=== PATIENT | male | born 1935 | race American Indian/Alaskan Native ===

== ENCOUNTER 2017-07-25 20:46 | Emergency (ER) | payer MEDICARE ==
[2017-07-25] MEDS ORDERED: Doxycycline 100 MG Cap PO ONE (20:47)
[2017-07-25 22:17] LABS: CHLORIDE,CL 106 mmol/L (101-111); SODIUM,NA 136 mmol/L (135-145)
--- NOTE | 2017-07-25 22:47 | EDM.PDOC ---
ED HPI GENERAL MEDICAL PROBLEM - General Chief Complaint: Lower Extremity Injury/Pain Stated Complaint: [id number] LEG SWOLLEN FOR 4 DAYS Time Seen by Provider: 07/25/17 21:10 Source of Information: Reports: Patient, Family History Limitations: Reports: No Limitations - History of Present Illness INITIAL COMMENTS - FREE TEXT/NARRATIVE: left lower edmondson, red and warm x 4 days, noted blisters on mid ortion today. reports hot packing area past 2 days. Anterior area tender, no pain to posterior calf. No hx clots. No hx skin infections. Unsure if bumped leg or not. No other complaints. No fevers, some chills. - Related Data Allergies Allergy/AdvReac Type Severity Reaction Status Date / Time No Known Allergies Allergy Verified 07/25/17 21:02 Home Meds: Home Meds . [No Known Home Meds] 07/25/17 [History] Past Medical History HEENT History: Reports: Impaired Vision Other HEENT History: wears glasses - Past Surgical History HEENT Surgical History: Reports: None GI Surgical History: Reports: Hernia Repair/Other Musculoskeletal Surgical History: Reports: Knee Replacement Social & Family History - Family History Family Medical History: Noncontributory - Tobacco Use Smoking Status *Q: Unknown Ever Smoked - Caffeine Use Caffeine Use: Reports: Coffee - Recreational Drug Use Recreational Drug Use: No Review of Systems - Review of Systems Review Of Systems: ROS reveals no pertinent complaints other than HPI. ED EXAM, GENERAL - Physical Exam Exam: See Below Exam Limited By: No Limitations General Appearance: Alert, Mild Distress Eye Exam: Bilateral Eye: EOMI Ears: Normal External Exam Nose: Normal Inspection Throat/Mouth: Normal Inspection, Normal Voice Head: Atraumatic, Normocephalic Neck: Normal Inspection Respiratory/Chest: No Respiratory Distress, Lungs Clear, Normal Breath Sounds Cardiovascular: Normal Peripheral Pulses, Regular Rate, Rhythm GI/Abdominal: Normal Bowel Sounds, Soft, Non-Tender Extremities: Normal Range of Motion, Leg Pain (anterior left edmondson), Increased Warmth (anterior 5x8cm red, warm few small blisters). No: Limited Range of Motion Neurological: Alert, Oriented Psychiatric: Normal Affect, Normal Mood Skin Exam: Warm, Dry, Erythema, Increased Warmth Course - Vital Signs Last Recorded V/S: Last Vital Signs Temp 98.2 F 07/25/17 21:06 Pulse 69 07/25/17 21:06 Resp 16 07/25/17 21:06 BP 125/66 07/25/17 21:06 Pulse Ox 96 07/25/17 21:06 - Orders/Labs/Meds Labs: Laboratory Tests 07/25/17 07/25/17 07/25/17 Range/Units 21:50 21:50 21:50 WBC 5.7 (5.0-10.0) 10^3/uL RBC 3.95 L (4.6-6.2) 10^6/uL Hgb 12.9 L (14.0-18.0) g/dL Hct 37.1 L (40.0-54.0) % MCV 93.9 (80-100) fL MCH 32.7 (27.0-34.0) pg MCHC 34.8 (33.0-35.0) g/dL Plt Count 166 (150-450) 10^3/uL Neut % (Auto) 40.4 L (42.2-75.2) % Lymph % (Auto) 42.9 (20.5-50.1) % Yell % (Auto) 10.6 H (2-8) % Eos % (Auto) 5.6 H (1.0-3.0) % Baso % (Auto) 0.5 (0.0-1.0) % Sodium 136 (135-145) mmol/L Potassium 3.5 L (3.6-5.0) mmol/L Chloride 106 (101-111) mmol/L Carbon Dioxide 27.0 (21.0-31.0) mmol/L Anion Gap 6.5 BUN 24 H (7-18) mg/dL Creatinine 1.1 (0.6-1.3) mg/dL Est Cr Clr Drug Dosing 49.14 mL/min Estimated GFR (MDRD) > 60 BUN/Creatinine Ratio 21.81 Glucose 147 H (74-105) mg/dL Lactic Acid 1.2 (0.5-2.2) mmol/L Calcium 8.5 (8.4-10.2) mg/dl Total Bilirubin 0.4 (0.2-1.0) mg/dL AST 30 (10-42) IU/L ALT 24 (10-60) IU/L Alkaline Phosphatase 90 (42-121) IU/L Total Protein 6.7 (6.7-8.2) g/dl Albumin 3.4 (3.2-5.5) g/dl Globulin 3.3 Albumin/Globulin Ratio 1.03 Meds: Medications Discontinued Medications Generic Name Dose Route Start Last Admin Trade Name Riki PRN Reason Stop Dose Admin Doxycycline Hyclate Confirm 07/25/17 22:48 07/26/17 02:32 Vibramycin Administered 07/25/17 22:49 Not Given Dose 200 mg .ROUTE .STK-MED ONE Departure - Departure Time of Disposition: 22:45 Disposition: Home, Self-Care 01 Condition: Good Clinical Impression: Cellulitis Qualifiers: Site of cellulitis: extremity Site of cellulitis of extremity: lower extremity Laterality: right Qualified Code(s): L03.115 - Cellulitis of right lower limb - Discharge Information Instructions: Cellulitis, Adult, [id number] Referrals: PCP,Not In Area [Primary Care Provider] - Forms: ED Department Discharge Additional Instructions: warm pack 20 min three times daily doxycycline 100mg one twice daily for one week follow up if increased redness, swelling or fever tylenol 650mg every 4 hours as needed for discomfort
[2017-07-25] MEDS ORDERED: Doxycycline 100 MG Cap ONE (22:48)
== END 2017-07-25 22:56 | disposition home or self-care (01) ==
LOC: DL.ED 20:46
DX: L03.116 Cellulitis of left lower limb (principal)
CPT/HCPCS: 36415; 80053; 83605; 85025; 99283; A9270